=== PATIENT | female | born 1955 | race Caucasian/White ===

== ENCOUNTER 2016-09-26 22:41 | Emergency (ER) | payer BC ==
--- NOTE | ~2016-09-26 | US85 ---
[facility] RADIOLOGY TEXT RESULTS PATIENT: WESLY MUNOZ LOCATION: SED : 55 UNIT #: [id number] AGE: [address]: Zaki Steele MD SEX: F ORDER DR: [id number] [place] [id number] E MR#: [id number] Acc #: [id number] NAME: WESLY MUNOZ : 1955 SEX: F STUDY DATE/TIME: 09/26/2016 23:05 UNIT: SED ROOM: STUDY DESCRIPTION: [facility] or [facility] Attending Physician: Zaki Steele M.D. Ordering Physician: Zaki Steele M.D. Primary Care Physician: Zaki Freitas Jr., M.D. MEDICAL IMAGING REPORT This report is preliminary unless electronic signature is present. EXAM Venous Doppler ultrasound, left leg, 09/26/2016 HISTORY 61-year-old female in the ED complaining of 3-day history of left lower extremity pain. TECHNIQUE Venous ultrasound examination of the left lower extremity was performed using grayscale, spectral Doppler and color flow Doppler imaging. FINDINGS The examination is negative. There is no evidence of left lower extremity deep venous thrombus from the groin to the lower calf. Visualized greater saphenous vein is also patent. IMPRESSION Negative examination. No evidence of left lower extremity deep venous thrombosis. Dictated by... Lobo Jean Baptiste M.D. THIS IS AN ELECTRONICALLY VERIFIED REPORT Lobo Jean Baptiste M.D. at 09/27/2016 9:43 PM RGW/alexander TD: 09/27/2016 00:12 JOB #: [id number] [facility] RADIOLOGY TEXT RESULTS PATIENT: WESLY MUNOZ LOCATION: SED : 55 UNIT #: [id number] AGE: [address]: Zaki Steele MD SEX: F ORDER DR: MEDICAL IMAGING REPORT Page 1 of 1
[~2016-09-26 22:41] MED LIST: AMOXICILLIN PO; ATARAX PO; FAMOTIDINE PO; NEXIUM PO; SINGULAIR PO; SYNTHROID PO; SYNTHROID0.1 MG PO; WALMART PHARMACY
== END 2016-09-27 01:10 | disposition home or self-care (01) ==
LOC: SED 22:41
DX: M25.562 Pain in left knee (principal); F41.9 Anxiety disorder, unspecified
CPT/HCPCS: 93971; 99284